=== PATIENT | female | born 1995 | race Caucasian/White ===

== ENCOUNTER 2016-09-10 07:42 | Inpatient (IN) | payer MEDICAID ==
[2016-09-10 09:05] LABS: ROM Internal QC QC Line Present
[2016-09-10 15:40] LABS: Hematocrit 32 % (35-47); Hemoglobin 10.6 g/dl (12.0-16.0); Mean Corpuscular HGB Conc 34 g/dl (31-36); Mean Corpuscular Hemoglobin 27 pg (27-31); Mean Corpuscular Volume 79 fL (80-97); Mean Platelet Volume 9 um3 (7.4-10.4); Red Blood Count 3.97 10^6/ul (4.0-5.4); Red Cell Distribution Width 15 % (10.5-15); White Blood Count 10.7 10^3/ul (3.5-10.8)
[2016-09-10] MEDS ORDERED: Nalbuphine* 20 MG/ML 1 ML VIAL IV ONE (20:51)
[2016-09-10] MEDS ORDERED: Promethazine INJ(RESTRICTED)* 25 MG/ML 1 ML VIAL IV ONE (20:51)
[2016-09-11] MEDS ORDERED: Oxytocin in LR* 0 UNITS/0 ML BAG IVPB ONE (01:15)
[2016-09-11] MEDS ORDERED: Witch Hazel PAD* JAR TOPICAL PRN (05:01)
[2016-09-11] MEDS ORDERED: Acetaminophen TAB* 325 MG PO PRN (05:01)
[2016-09-11] MEDS ORDERED: Dibucaine 1% 28.35 GM TUBE PR PRN (05:01)
[2016-09-11] MEDS: Ibuprofen TAB* 600 MG PO PRN ×3 (07:31→20:03)
[2016-09-11] MEDS: Docusate CAP* 100 MG PO SCH ×3 (07:31→20:03)
[2016-09-12] MEDS: Ibuprofen TAB* 600 MG PO PRN ×3 (02:32→20:16)
[2016-09-12 08:22] LABS: Hematocrit 29 % (35-47); Hemoglobin 9.5 g/dl (12.0-16.0); Mean Corpuscular HGB Conc 33 g/dl (31-36); Mean Corpuscular Hemoglobin 27 pg (27-31); Mean Corpuscular Volume 82 fL (80-97); Mean Platelet Volume 9 um3 (7.4-10.4); Red Blood Count 3.53 10^6/ul (4.0-5.4); Red Cell Distribution Width 15 % (10.5-15); White Blood Count 11.8 10^3/ul (3.5-10.8)
[2016-09-12] MEDS: Ferrous Gluconate TAB* 324 MG TAB PO SCH ×2 (08:59→20:16)
[2016-09-12] MEDS: Docusate CAP* 100 MG PO SCH ×3 (08:59→20:16)
[2016-09-13] MEDS: Ibuprofen TAB* 600 MG PO PRN ×2 (04:53→11:36)
[2016-09-13 08:26] VITALS: BP 112/66
[2016-09-13] MEDS: Docusate CAP* 100 MG PO SCH (08:41)
[2016-09-13] MEDS: Ferrous Gluconate TAB* 324 MG TAB PO SCH (08:41)
[2016-09-13] MEDS ORDERED: Measles, Mumps,Rubella VACC* 0.5 ML/VIAL SUBCUT ONE (12:23)
== END 2016-09-13 13:30 | disposition home or self-care (01) | DRG 560 ==
LOC: MCHOBOUT 07:42 → MCHOB 08:40
PROVIDERS: ADMIT Midwife; ATTEND Nurse Practitioner
PROC: 10E0XZZ Delivery of Products of Conception, External Approach (ICD-10-PCS; principal; 2016-09-11)
PROC: 10907ZC Drainage of Amniotic Fluid, Therapeutic from Products of Conception, Via Natural or Artificial Opening (ICD-10-PCS; 2016-09-11)
PROC: 0HQ9XZZ Repair Perineum Skin, External Approach (ICD-10-PCS; 2016-09-11)
DX: O63.0 Prolonged first stage (of labor) (principal); D64.9 Anemia, unspecified; O48.0 Post-term pregnancy; O70.0 First degree perineal laceration during delivery; O90.81 Anemia of the puerperium; Z3A.40 40 weeks gestation of pregnancy; Z37.0 Single live birth
CPT/HCPCS: 36415; 84112; 85025; 86850; 86900; 86901; A9270-GY; J2300; J2550